=== PATIENT | female | born 1965 | race Caucasian/White ===

== ENCOUNTER 2020-10-08 15:08 | Emergency (ER) | payer BC ==
[2020-10-08] MEDS ORDERED: HYDROmorphone 1 MG/ML Syringe IM ONE (16:07)
--- NOTE | 2020-10-08 16:13 | EDM.PDOC ---
ED HPI GENERAL MEDICAL PROBLEM - General Chief Complaint: Lower Extremity Injury/Pain Stated Complaint: FALL Time Seen by Provider: 10/08/20 16:00 Source of Information: Reports: Patient. Denies: Old Records History Limitations: Reports: Other (no old records) - History of Present Illness INITIAL COMMENTS - FREE TEXT/NARRATIVE: 55 yo female fell on stairs today and experienced an inversion injury of her R ankle. Not able to bare weight. No tx prior to arrival. Has a cabin near [place], [place]. No other injuries in her fall. Onset: Today, Sudden Onset Date: 10/08/20 Duration: Minutes: Location: Reports: Lower Extremity, Right Quality: Reports: Ache Severity: Moderate Improves with: Reports: Immobilization, Rest Worsens with: Reports: Movement. 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) (none) Right Ankle Pain Score (Numeric/FACES): 8 - Related Data Allergies Allergy/AdvReac Type Severity Reaction Status Date / Time No Known Allergies Allergy Verified 10/08/20 15:57 Home Meds: Home Meds Aspirin [Halfprin] 162 mg PO BEDTIME 10/08/20 [History] Empagliflozin [Jardiance] 25 mg PO DAILY 10/08/20 [History] Fenofibrate 160 mg PO DAILY 10/08/20 [History] Hydrocodone/Acetaminophen [Hydrocodon-Acetaminophen 5-325] 1 - 2 each PO QID #25 tablet 10/08/20 [Rx] Levothyroxine 175 mcg PO ACBREAKFAST 10/08/20 [History] Linagliptin [Tradjenta] 5 mg PO DAILY 10/08/20 [History] Metoprolol Tartrate [Lopressor] 25 mg PO Q12HR 10/08/20 [History] Rosuvastatin [Crestor] 10 mg PO BEDTIME 10/08/20 [History] Sertraline [Zoloft] 100 mg PO DAILY 10/08/20 [History] buPROPion [Wellbutrin] 0 mg PO DAILY 10/08/20 [History] lisinopriL [Lisinopril] 5 mg PO DAILY 10/08/20 [History] metFORMIN HCl [Metformin HCl] 500 mg PO BID 10/08/20 [History] Review of Systems - Review of Systems Review Of Systems: See Below Constitutional: Reports: No Symptoms Musculoskeletal: Reports: Joint Pain (R ankle) Skin: Reports: No Symptoms Neurological: Reports: No Symptoms ED EXAM, GENERAL - Physical Exam Exam: See Below Exam Limited By: No Limitations General Appearance: Alert, WD/WN, No Apparent Distress Extremities: Pedal Edema (slight swelling over the lateral malleolus), Limited Range of Motion, Other (tender over the distal tibia also with subtle induration. ) Neurological: Alert, Oriented, CN II-XII Intact, Normal Cognition, No Motor/Sensory Deficits Psychiatric: Normal Affect, Normal Mood Skin Exam: Warm, Dry, Intact, Normal Color, No Rash Course - Vital Signs Last Recorded V/S: Last Vital Signs Temp 36.3 C 10/08/20 15:54 Pulse 68 10/08/20 15:54 Resp 16 10/08/20 15:54 BP 134/79 10/08/20 15:54 Pulse Ox 97 10/08/20 15:54 - Orders/Labs/Meds Orders: Active Orders 24 hr Category Date Time Status Ankle Min 3V Rt [CR] Stat Exams 10/08/20 16:08 Taken Meds: Medications Discontinued Medications Generic Name Dose Route Start Last Admin Trade Name Freq PRN Reason Stop Dose Admin Hydromorphone HCl 1 mg 10/08/20 16:07 10/08/20 16:14 Hydromorphone 1 Mg/Ml Syringe IM 10/08/20 16:08 1 mg ONETIME ONE Administration - Radiology Interpretation Free Text/Narrative:: R ankle [id number] fibula fx Departure - Departure Time of Disposition: 17:00 Disposition: Home, Self-Care 01 Condition: Fair Clinical Impression: Fracture of distal fibula Qualifiers: Encounter type: initial encounter Fracture type: closed Fracture morphology: other fracture Laterality: right Qualified Code(s): S82.831A - Other fracture of upper and lower end of right fibula, initial encounter for closed fracture - Discharge Information *PRESCRIPTION DRUG MONITORING PROGRAM REVIEWED*: No *COPY OF PRESCRIPTION DRUG MONITORING REPORT IN PATIENT MIKE: No Instructions: Tibial and Fibular Fractures Referrals: PCP,None [Primary Care Provider] - Forms: ED Department Discharge Additional Instructions: Keep ankle elevated to reduce swelling. F/U with orthopedics next week, someone should be calling you for an appt. Take ibuprofen 600 mg every 6 hrs with food and either acetaminophen OR hydrocodone for added relief. Sepsis Event Note (ED) - Evaluation Sepsis Screening Result: No Definite Risk - Focused Exam Vital Signs: Vital Signs Temp Pulse Resp BP Pulse Ox 10/08/20 15:54 36.3 C 68 16 134/79 97 - My Orders Last 24 Hours: My Active Orders 10/08/20 16:08 Ankle Min 3V Rt [CR] Stat - Assessment/Plan Last 24 Hours: My Active Orders 10/08/20 16:08 Ankle Min 3V Rt [CR] Stat
--- NOTE | 2020-10-12 09:05 | CR ---
Ankle Min 3V Rt CLINICAL HISTORY: Fall FINDINGS: The soft tissues are swollen. There is a slightly displaced fracture of the distal fibula. There is a fracture of the posterior tibial plafond and into the medial malleolus. There is asymmetry in the ankle mortise. Impression: Distal tib-fib fractures
== END 2020-10-08 17:05 | disposition home or self-care (01) ==
LOC: JP.ED 15:08
DX: S82.831A Other fracture of upper and lower end of right fibula, initial encounter for closed fracture (principal); Z79.82 Long term (current) use of aspirin; R60.0 Localized edema; X50.1XXA Overexertion from prolonged static or awkward postures, initial encounter
CPT/HCPCS: 73610; 96372; 99283; J1170